=== PATIENT | female | born 1945 | race Caucasian/White ===

== ENCOUNTER → 2016-10-19 15:54 | Outpatient (CLI) | payer MEDICARE, BC ==
[~2016-10-19 15:54] MED LIST: ALBUTEROL2.5 MG/3 M UPD; ASPIRIN81 MG PO; COREG12.5 MG PO; KLOR-CON M2020 MEQ PO; LASIX40 MG PO; OMNICEF300 MG PO; ROBAXIN500 MG PO; STERAPRED DS 1210 MG PO; SYNTHROID100 MCG PO; VITAMIN D31000 UNIT PO; ZYLOPRIM100 MG PO
[2017-01-01 13:12] VITALS: BMI 37.7
== END | disposition home or self-care (01) ==
LOC: D.US 15:54
DX: I80.02 Phlebitis and thrombophlebitis of superficial vessels of left lower extremity (principal)

== ENCOUNTER → 2016-12-20 18:21 | Outpatient (CLI) | payer MEDICARE, BC ==
[~2016-12-20 18:21] MED LIST changes: -ALBUTEROL2.5 MG/3 M UPD; -ROBAXIN500 MG PO
[2017-01-01 13:12] VITALS: BMI 37.7
== END | disposition home or self-care (01) ==
LOC: D.SLEEP 18:21
DX: G47.33 Obstructive sleep apnea (adult) (pediatric) (principal)

== ENCOUNTER 2016-12-31 12:42 | Inpatient (IN) | payer MEDICARE, BC ==
[~2016-12-31] VITALS: Ht 162.6 cm; Wt 99.8 kg
[2016-12-31 13:33] LABS: BASOPHILS 0.1 % (0.0-2.0); EOSINOPHILS 0.1 % (0-7); HEMATOCRIT 42.4 % (36.0-48.0); HEMOGLOBIN 14.3 g/dL (12-16); IMMATURE GRANULOCYTES 0.4 % (0-5); LYMPHOCYTES 12.1 % (15-50); MCH 29.7 pg (26.0-34.0); MCHC 33.7 g/dL (31.0-37.0); MCV 88.1 fL (80.0-100.0); MEAN PLATELET VOLUME 10.7 fL (7.4-10.4); NEUTROPHILS 83.3 % (40-80); PLATELET COUNT 190 10x3/uL (130-400); RBC 4.81 10x6/uL (4.00-5.40); RDW 14.3 % (11.5-14.5); WBC 9.2 10x3/uL (4.8-10.8)
[2016-12-31 13:38] LABS: APPEARANCE CLEAR (CLEAR); BACTERIA FEW /hpf (NONE SEEN); BILIRUBIN NEGATIVE (NEGATIVE); COLOR YELLOW (YELLOW); EPITHELIAL CELLS 0-5 /hpf (0-5); GLUCOSE NEGATIVE (NEGATIVE); KETONE NEGATIVE (NEGATIVE); LEUKOCYTE ESTERASE TRACE (NEGATIVE); NITRITE NEGATIVE (NEGATIVE); PROTEIN NEGATIVE (NEGATIVE); SPECIFIC GRAVITY 1.015 (1.005-1.020); UROBILINOGEN NORMAL (NORMAL); WHITE CELLS - URINE OCC /hpf (0-5)
[2016-12-31 13:46] LABS: ALBUMIN 3.8 g/dL (3.4-5.0); ANION GAP 16.1 mmol/L (8-16); BILIRUBIN - TOTAL 0.49 mg/dL (0.2-1.3); CALCIUM 8.4 mg/dL (8.5-10.1); CARBON DIOXIDE 24.7 mmol/L (21.0-32.0); CREATININE - SERUM 1.6 mg/dL (0.6-1.3); POTASSIUM - SERUM 3.8 mmol/L (3.5-5.1); PROTEIN - SERUM 7.5 g/dL (6.4-8.2)
[2016-12-31 14:22] LABS: CREATINE KINASE 44 UL (21-215); MAGNESIUM - SERUM 1.6 mg/dL (1.8-2.4)
[2016-12-31 14:23] LABS: TROPONIN-I < 0.017 ng/mL (0.000-0.060)
--- NOTE | 2016-12-31 20:12 | NUR ---
RECIEVED PT TO FLOOR VIA WHEELCHAIR AND HOSPITAL STAFF. PT AMBULATED SELF TO BED. ALERT AND ORIENTED AND ABLE TO VERBALIZE NEEDS. IV IS PATENT AND SALINE LOC AT THIS TIME. PT IS AMBULATORY BUT WAS INSTRUCTED TO CALL FOR ANY ASSISTANCE NEEDED. PT IS ORIENTED TO ROOM AND USE OF CALL LIGHT. NO NEEDS ARE VERBALIZED AT THIS TIME. WILL CONTINUE TO MONITOR. SIDE RAILS ARE UP X 2. BED IS IN LOWEST POSITION. CALL LIGHT IS WITHIN REACH.
--- NOTE | 2016-12-31 21:42 | NUR ---
ADMIT ASSESSMENT COMPLETED. FLUIDS HOOKED UP PER ORDER. PT C/O PAIN 04/26. ADMINISTERED PRESCRIBED PRN MORHINE PER ORDER. DENIES FURTHER NEEDS. WILL MONITOR. SIDE RAILS X 2. BED LOW. CALL LIGHT IN REACH.
[2017-01-01] VITALS: BP 174/78
[2017-01-01 04:00] VITALS: BP 172/80
[2017-01-01 04:04] VITALS: BP 196/97; BMI 37.8
[2017-01-01] MEDS ORDERED: OMNICEF300 MG PO (04:12)
[2017-01-01] MEDS ORDERED: SYNTHROID100 MCG PO (04:12)
[2017-01-01] MEDS ORDERED: LASIX40 MG PO (04:12)
[2017-01-01] MEDS ORDERED: COREG12.5 MG PO ×2 (04:13→07:37)
[2017-01-01] MEDS ORDERED: STERAPRED DS 1210 MG PO (04:13)
[2017-01-01] MEDS ORDERED: VITAMIN D31000 UNIT PO (04:14)
[2017-01-01] MEDS ORDERED: KLOR-CON M2020 MEQ PO (04:14)
[2017-01-01] MEDS ORDERED: ZYLOPRIM100 MG PO (04:14)
[2017-01-01] MEDS ORDERED: ASPIRIN81 MG PO (04:15)
--- NOTE | 2017-01-01 07:00 | NUR ---
REPORT RECIEVED ASSUMED CARE. PATIENT IN BED WITH IV INTACT. NO COMPLAINTS. CALL LIGHT WITHIN REACH.
--- NOTE | 2017-01-01 07:29 | HP ---
PATIENT: ROSETTA SALMERON DAILY MEDICAL RECORD: [id number] ACCOUNT: [id number] LOCATION:D.[id number] : 46 ADMISSION DATE: 12/31/16 HISTORY AND PHYSICAL EXAMINATION HISTORY OF PRESENT ILLNESS: A 71-year-old female, who presents to the Emergency with severe lumbar pain, bilateral lower extremity weakness, radiculopathy, has had prior symptoms. Today, she required full assistance for transfers and to get back to the car. PAST SURGICAL HISTORY: Significant for hysterectomy, cataract surgery, tonsillectomy, knee surgery. SOCIAL HISTORY: Denies any history of tobacco, 12th grade education, . No alcohol. FAMILY HISTORY: Father with arthritis, diabetes. Father and mother both with heart disease. Mother with CHF. MEDICAL HISTORY: Significant for asthma, hypothyroidism, gout. CURRENT MEDICATIONS: Allopurinol 100 mg 2 daily, aspirin 81 mg daily, carvedilol 12.5 mg b.i.d., furosemide 40 mg daily, DuoNeb via nebulizer 3-4 times daily, Klor-Con 20 mEq 1 daily, levothyroxine 100 mcg daily, prednisone taper 10 mg tapered, vitamin B12 supplements and vitamin D3 supplements. REVIEW OF SYSTEMS: CONSTITUTIONAL: No acute change in weight or appetite. HEENT: No cephalgia, visual changes, tinnitus, epistaxis or dysphagia. CARDIOVASCULAR: Denies chest pain or palpitation. PULMONARY: Denies hemoptysis, denies night sweats. Admits wheezing, dyspnea on exertion. GASTROINTESTINAL: Denies hematemesis, hematochezia or melena. GENITOURINARY: Denies dysuria. MUSCULOSKELETAL: Presenting complaint of severe lumbar pain radiation to both lower extremities, bilateral lower extremity weakness. NEUROLOGIC: Very limited mobility requires assist. PHYSICAL EXAMINATION: VITAL SIGNS: Temperature 99.1, blood pressure is 151/73, heart rate 77, respirations 20, O2 sats 96%. HEENT: Head is normocephalic, atraumatic. Eyes: Pupils are equally round and reactive to light and accommodation. Extraocular muscles intact. Conjunctiva was not injected. Ears: Canals patent, TMs are intact. Nose: Nares patent without drainage. Throat: No erythema, no exudates. NECK: Supple. No lymphadenopathy. No JVD. HEART: Regular rate and rhythm. No S3, S4, no rub. LUNGS: Scattered rhonchi, bilaterally expiratory wheeze. ABDOMEN: Soft, nontender. Bowel sounds in all 4 quadrants. EXTREMITIES: Present times 4, no edema. Lumbar midpoint tenderness L5-S1. Straight leg positive, radiculopathy pain in both legs. DTRs hyporeflexic both right slightly greater than the left. DIAGNOSTIC DATA: Echo done at the end of October of this year showed normal ejection fraction at 55%, no significant abnormalities. CPAP titration study, HISTORY AND PHYSICAL [id number] JARONROSETTA DAILY moderate obstructive sleep apnea with mild sleep related hypoxemia, CPAP range of 5-8 cm water pressure, results from ER pending. The patient is waiting for a bed, nothing is loaded into the computer. ASSESSMENT AND PLAN: 1. Lumbar pain with bilateral lower extremity weakness, radiculopathy. MRI of the lumbar spine is pending. Consult neurosurgery. 2. Asthmatic/chronic obstructive pulmonary disease symptoms. Continue DuoNeb. Consult Dr. Holguin, discussed case with Dr. Holguin, pain control, supportive care. 3. Hypertension. Restart medications. TRANSINT:[id number] Voice Confirmation ID: [id number] DOCUMENT ID: [id number] MARI LOWERY DO at 0729 CC: [id number] DICTATION DATE: 12/31/161900 TECHNOLOGY COACH: 12/31/162040 ADM IN [place] [id number] [place] [id number]
--- NOTE | 2017-01-01 08:00 | NUR ---
ASSESSMENT COMPLETE, VS STABLE. NO COMPLAINTS AT THIS TIME. IV INTACT. CALL LIGHT WITHIN REACH.
[2017-01-01 08:26] VITALS: BP 187/84
[2017-01-01 11:39] VITALS: BP 173/88
--- NOTE | 2017-01-01 11:56 | NUR ---
Patient Name: ROSETTA SALMERON Admission Status: ER Accout number: [id number] Admission Date: 12-31-2016 : 1945 Admission Diagnosis: Attending: [facility] Current LOS: 1 Anticipated DC Date: 01-04-2017 Planned Disposition: Home or Self Care Primary Insurance: MEDICARE A & B Discharge Planning Comments: CM MET WITH PATIENT REGARDING D/C NEEDS AND PLANS. PATIENT STATED SHE LIVES WITH HER SPOUSE (BETTY) AND HE WILL DRIVE HER HOME AT DISCHARGE. PATIENT STATES THERE ARE 3 STAIRS INSIDE HOME W/O RAIL TO GET TO HER DEN. PATIENT STATED SHE IS INDEPENDENT AND HAS NO DME AT HOME. PATIENTS PCP IS DR. LOWERY AND PHARMACY IS [facility] [address]. PATIENT HAS NEVER HAD HOME HEALTH AND DOES NOT WANT IT AT DISCHARGE. CM WILL CONTINUE TO FOLLOW PATIENT WITH D/C NEEDS AND PLANS. PCP DR. [facility]EVER[facility] [address] (PHARMACY) [phone] BETTY (SPOUSE) [phone] Senior [employer] Software Engineer: Lynne Amin Is the patient Alert and Oriented? Yes 0 * How many steps to enter\exit or inside your home? 3 0 * PCP DR. LOWERY 0 * Pharmacy [facility] [address] 0 * Preadmission Environment Home with Family 0 * ADLs Independent 0 * Equipment None 0 * List name and contact numbers for known caregivers / representatives who currently or will assist patient after discharge: BETTY (SPOUSE) [phone] 0 * Community resources currently utilized None 0 * Additional services required to return to the preadmission environment? Yes 0 * Can the patient safely return to the preadmission environment? Yes 0 * Has this patient been hospitalized within the prior 30 days at any hospital? No 0 Grand Total: 0
--- NOTE | 2017-01-01 13:00 | NUR ---
PATIENT SITTING UP IN BED EATING. NO COMPLAINTS. IV INTACT. CALL LIGHT WITHIN REACH.
[2017-01-01 13:12] VITALS: Ht 162.6 cm; Wt 99.8 kg
--- NOTE | 2017-01-01 14:06 | NUR ---
PATIENT UP AMBULATING WITH PT.
--- NOTE | 2017-01-01 15:17 | NUR ---
PATIENT TO GET MRI DONE
--- NOTE | 2017-01-01 16:00 | NUR ---
PATIENT BACK TO ROOM WITH NO COMPLAINTS. IV INTACT. CALL LIGHT WITHIN REACH.
--- NOTE | 2017-01-01 18:50 | NUR ---
PATIENT IN BED WITH IV INTACT. NO COMPLAINTS AT THIS TIME. CALL LIGHT WITHIN REACH.
--- NOTE | 2017-01-01 19:20 | NUR ---
RECIEVED SHIFT REPORT. PT IS LYING IN BED. ALERT AND ORIENTED AND ABLE TO VERBALIZE NEEDS. IV IS PATENT AND FLUIDS ARE RUNNING PER ORDER. PT IS AMBULATORY BUT WAS INSTRUCTED TO CALL FOR ANY ASSISTANCE NEEDED. PT STATES PAIN IS 5/10. NO NEEDS ARE VERBALIZED AT THIS TIME. WILL CONTINUE TO MONITOR. SIDE RAILS ARE UP X 2. BED IS IN LOWEST POSITION. CALL LIGHT IS WITHIN REACH.
--- NOTE | 2017-01-01 19:20 | NUR ---
RECIEVED SHIFT REPORT. PT IS LYING IN BED. ALERT AND ORIENTED AND ABLE TO VERBALIZE NEEDS. IV IS PATENT AND FLUIDS ARE RUNNING PER ORDER. PT IS AMBULATORY BUT WAS INSTRUCTED TO CALL FOR ANY ASSISTANCE NEEDED. PT STATES PAIN IS 4/10. O2 @ 2 PER NASAL CANNULA. NO NEEDS ARE VERBALIZED AT THIS TIME. WILL CONTINUE TO MONITOR. SIDE RAILS ARE UP X 2. BED IS IN LOWEST POSITION. CALL LIGHT IS WITHIN REACH.
[2017-01-01 20:00] VITALS: BP 123/58
--- NOTE | 2017-01-01 20:05 | NUR ---
SHIFT ASSESSMENT COMPLETED. PT STATUS REMAINS UNCHANGED FROM PREVIOUS. NO NEEDS ARE VOICED. WILL MONITOR. SIDE RAILS X 2. BED LOW. CALL LIGHT IN REACH.
[2017-01-02 04:31] LABS: BASOPHILS 0.2 % (0.0-2.0); EOSINOPHILS 2.4 % (0-7); HEMATOCRIT 39.5 % (36.0-48.0); HEMOGLOBIN 13.2 g/dL (12-16); IMMATURE GRANULOCYTES 0.3 % (0-5); LYMPHOCYTES 24.2 % (15-50); MCH 29.9 pg (26.0-34.0); MCHC 33.4 g/dL (31.0-37.0); MCV 89.6 fL (80.0-100.0); MEAN PLATELET VOLUME 10.7 fL (7.4-10.4); MONOCYTES 6.9 % (2-11); PLATELET COUNT 156 10x3/uL (130-400); RBC 4.41 10x6/uL (4.00-5.40); RDW 14.2 % (11.5-14.5); WBC 9.3 10x3/uL (4.8-10.8)
[2017-01-02 04:47] LABS: ANION GAP 11.6 mmol/L (8-16); CALCIUM 8.3 mg/dL (8.5-10.1); CREATININE - SERUM 1.3 mg/dL (0.6-1.3); HEMOGLOBIN A1C 6.2 % (4.8-6.0); MAGNESIUM - SERUM 1.6 mg/dL (1.8-2.4); POTASSIUM - SERUM 3.6 mmol/L (3.5-5.1)
--- NOTE | 2017-01-02 07:00 | NUR ---
REPORT RECIEVED ASSUMED CARE. PATIENT IN BED WITH IV INTACT. NO COMPLAINTS AT THIS TIME. CPM ON AND WORKING. CALL LIGHT WITHIN REACH.
[2017-01-02 08:19] VITALS: BP 168/80
--- NOTE | 2017-01-02 08:40 | NUR ---
PATIENT IV HURTING AND RED. REMOVED WITH CATH TIP INTACT. EXPLAINED TO PATIENT THAT IF NEED ANOTHER IV WE WOULD START ONE AT THAT TIME. VERBALIZED UNDERSTANDING. CALL LIGHT WITHIN REACH. CPM ON AND WORKING.
[2017-01-02 12:16] VITALS: BP 148/100
[2017-01-02 16:44] VITALS: BP 150/73
--- NOTE | 2017-01-02 18:00 | NUR ---
SPOKE WITH HORACE ABOUT PATIENTS PAIN AT THIS TIME. STATED SHE WOULD SPEAK WITH PATIENT. NOTIFIED PATIENT. [facility].
--- NOTE | 2017-01-02 18:45 | NUR ---
PATIENT SITTING UP IN BED WITH NO COMPLAINTS AT THIS TIME. IV INTACT. CALL LIGHT WITHIN REACH.
[2017-01-02 20:00] VITALS: BP 163/80
--- NOTE | 2017-01-02 22:25 | NUR ---
SHIFT ASSESSMENT COMPLETED. PT IV TO RIGHT HAND INFILTRATED. D/C'D WITH CATHETER TIP INTACT. NEW IV RESITED TO RIGHT AC X 3 ATTEMPTS. GOOD BLOOD RETURN. FLUSHES W/O DIFFICULTY. FLUIDS RECONNECTED PER ORDER. NIGHT MEDS GIVEN WITH NO PROBLEMS. PT REQUESTING PRN ROBAXIN FOR MUSCLE SPASM. ADMINISTERED PER ORDER. DENIES FURTHER NEEDS. WILL MONITOR. SIDE RAILS X 2. BED LOW. CALL LIGHT IN REACH.
[2017-01-03] VITALS: BP 155/74
[2017-01-03 04:00] VITALS: BP 159/71
--- NOTE | 2017-01-03 07:00 | NUR ---
REPORT RECIEVED ASSUMED CARE. PATIENT IN BED WITH NO COMPLAINTS AT THIS TIME. CALL LIGHT WITHIN REACH.
[2017-01-03 08:15] VITALS: BP 199/104
--- NOTE | 2017-01-03 08:50 | NUR ---
DR. MARIO TO PATIENT. PATIENT HAS NO COMPLAINTS. IV INTACT. CALL LIGHT WITHIN REACH.
[2017-01-03 09:18] LABS: IMMUNOGLOBULIN E 71 IU/mL (0-100)
[2017-01-03 10:20] LABS: IMMUNOGLOBULIN A 166 mg/dL (87-352); IMMUNOGLOBULIN G 751 mg/dL (700-1600)
[2017-01-03 12:11] VITALS: BP 155/89
--- NOTE | 2017-01-03 13:13 | NUR ---
NUTRITION MONITORING & EVAL CHART REVIEWED, PT VISIT. REG DIET WITH 100% INTAKE RECENT MEALS. RD FOLLOWING
--- NOTE | 2017-01-03 13:45 | NUR ---
NEW IV STARTED ON PATIENT BY LULÚ STOVER IN LEFT HAND. IV IN RIGHT AC REMOVED WITH CATH TIP INTACT. NO COMPLAINTS. CALL LIGHT WITHIN REACH.
--- NOTE | 2017-01-03 15:00 | NUR ---
PATIENT UP AMBULATING IN [place] WITH NO PROBLEMS AT THIS TIME. BACK BRACE ON.
[2017-01-03 15:23] VITALS: BP 155/82
--- NOTE | 2017-01-03 17:24 | NUR ---
REPORT RECIEVED ASSUMED CARE. PATIENT IN BED WITH IV INTACT. NO COMPLAINTS AT THIS TIME. CALL LIGHT WITHIN REACH.
--- NOTE | 2017-01-03 18:50 | NUR ---
PATIENT SITTING UP IN BED WITH NO COMPLAINTS. IV INTACT. FAMILY AT BEDSIDE. CALL LIGHT WITHIN REACH.
[2017-01-03 20:00] VITALS: BP 143/56
--- NOTE | 2017-01-03 22:46 | NUR ---
PATIENT RESTING IN BED AND DENIES NEEDS AT THIS TIME. ADMINISTERED MEDS PER ORDERS. BED IN LOWEST POSITION AND CALL LIGHT WITHIN REACH. ENCOURAGED PATIENT TO CALL IF SHE HAS FURTHER NEEDS.
[2017-01-04] VITALS: BP 142/72
[2017-01-04 03:00] VITALS: BP 141/66
[2017-01-04 04:41] LABS: APTT 26.8 SECONDS (22.8-39.4); INR 0.94 (0.85-1.17); PROTIME 12.5 SECONDS (11.6-15.0)
[2017-01-04 04:52] LABS: CALCIUM 8.8 mg/dL (8.5-10.1); CARBON DIOXIDE 30.3 mmol/L (21.0-32.0); CREATININE - SERUM 1.3 mg/dL (0.6-1.3)
[2017-01-04 04:53] LABS: POTASSIUM - SERUM 4.3 mmol/L (3.5-5.1)
--- NOTE | 2017-01-04 07:30 | NUR ---
PT BEING TAKE TO IR FOR INJECTION AT THIS TIME. WILL MONITOR PT WHEN SHE RETURNS TO ROOM 2207.
[2017-01-04 07:46] VITALS: BP 194/92
--- NOTE | 2017-01-04 08:35 | NUR ---
PT BACK TO ROOM 2207 AWAKE AND ALERT. DENIES NEEDS AT THIS TIME. CALL LIGHT IN REACH, WILL CONTINUE WITH PLAN OF CARE.
--- NOTE | 2017-01-04 09:09 | NUR ---
SCHEDULED MEDICATIONS ADMINISTERED AT THIS TIME. TAKEN WITHOUT DIFFICULTY. TOLERATING DIET WITHOUT ISSUE. SELF POSITIONS AND AMBULATES FOR COMFORT. CALL LIGHT IN REACH, WILL CONTINUE WITH PLAN OF CARE.
[2017-01-04 12:12] VITALS: BP 148/67
--- NOTE | 2017-01-04 13:15 | NUR ---
AMBULATING IN HALLWAY INDEPENDENTLY AT THIS TIME. DENIES NEEDS. WILL CONTINUE WITH PLAN OF CARE.
--- NOTE | 2017-01-04 14:40 | NUR ---
AMBULATING IN HALLWAY AT THIS TIME. DENIES NEEDS. WILL CONTINUE WITH PLAN OF CARE.
[2017-01-04 16:29] VITALS: BP 172/80
--- NOTE | 2017-01-04 19:35 | NUR ---
IV NOTED LEAKING AT SITE. IV DCD WITH CATH TIP INTACT. NEW 22G IV PLACED X2 ATTEMPTS. PATIENT TOLERATED WITHOUT COMPLAINTS. NO OTHER NEEDS VOICED AT THIS TIME. SHIFT ASSESSMENT COMPLETED. BED LOW. CALL LIGHT IN REACH
[2017-01-04 20:00] VITALS: BP 165/72
--- NOTE | 2017-01-04 22:27 | NUR ---
RESTING WITH EYES CLOSED, NO DISTRESS NOTED, FALL PRECAUTIONS IN PLACE, CL IN REACH
[2017-01-05] VITALS: BP 114/55
[2017-01-05 04:00] VITALS: BP 144/70
--- NOTE | 2017-01-05 07:10 | NUR ---
PATIENT RECEIVED IN RIGHT LATERAL POSITION ALERT AND RESTING QUIETLY. RESPIRATIONS EVEN AND UNLABORED. SIDE RAILS UP X2. BED IN LOW POSITION. DENIES NEEDS.
[2017-01-05] MEDS ORDERED: ROBAXIN500 MG PO (07:48)
[2017-01-05] MEDS ORDERED: ALBUTEROL2.5 MG/3 M UPD (07:48)
[2017-01-05] MEDS ORDERED: COREG12.5 MG PO (07:51)
[2017-01-05 07:52] VITALS: BP 153/65
--- NOTE | 2017-01-05 08:32 | NUR ---
CM REASSESSMENT NOTE: PATIENT IS DISCHARGING HOME TODAY-SPOUSE WILL DRIVE HER HOME. PATIENT DENIED HOME HEALTH OR ANY OTHER NEEDS.
--- NOTE | 2017-01-05 08:45 | NUR ---
PATIENT SITTING UP ON SIDE OF BED ALERT. NO SIGNS OF DISTRESS NOTED. SCHEDULED MEDICATION ADMINISTERED. DENIES NEEDS. SIDE RAILS UP X2. BED IN LOW POSITION. CALL LIGHT IN REACH.
--- NOTE | 2017-01-05 10:00 | NUR ---
PATIENT UP AMBULATING IN HALLWAY WITHOUT ASSIST. NO SIGNS OF DISTRESS NOTED.
--- NOTE | 2017-01-05 12:40 | NUR ---
SITTING UP ON SIDE OF BED ALERT EATING LUNCH. TOLERATING WELL. BED IN LOW POSITION. SIDE RAILS UP X2
--- NOTE | 2017-01-05 14:41 | NUR ---
PATIENT SITTING UP IN CHAIR RESTING WITH EYES CLOSED. RESPIRATIONS EVEN AND UNLABORED. CALL LIGHT IN REACH.
--- NOTE | 2017-01-05 15:20 | NUR ---
IV TO RIGHT HAND D/C BY MANUEL STUDENT AND INSTRUCTOR
--- NOTE | 2017-01-05 17:15 | NUR ---
D/C TEACHING PROVIDED. PATIENT STATES UNDERSTANDING.
--- NOTE | 2017-01-05 18:18 | NUR ---
PATIENT D/C HOME. TRANSFERRED DOWNSTAIRS WITH STAFF VIA WHEELCHAIR
--- NOTE | 2017-01-09 08:07 | DS ---
PATIENT:ROSETTA SALMERON DAILY :47 MEDICAL RECORD: [id number] DISCHARGE SUMMARY ADMISSION DATE: 12/31/16 DISCHARGE DATE: 01/05/17 DATE OF ADMISSION: 12/31/2016 DATE OF DISCHARGE: 01/05/2017 ADMISSION DIAGNOSES: Intractable lumbar pain, nonambulatory, obstructive sleep apnea, hypertension, asthma. DISCHARGE DIAGNOSES: Intractable lumbar pain with bilateral lower extremity weakness, radiculopathy, hypertension, obstructive sleep apnea, asthma. CONSULTS: Dr. Macdonald, neurosurgery; interventional radiology; Dr. Ramsey, pulmonology. HOSPITAL COURSE: The patient was admitted to the ER, unable to walk without full assistance. CT was obtained showing findings of lumbar disc disease. Recommendation for MRI, neurosurgery consulted. MRI findings showed some nerve impingement. Recommendations for interventional radiology, aspirin was held. interventional radiology awaited for aspirin, to clear and performed epidural injection, the patient now ambulatory with minimal discomfort. With her asthmatic symptoms and obstructive sleep apnea, pulmonology consulted, suggested medications. We will follow up as an outpatient. The patient is feeling significantly better. Pain significantly relieved. Discharged home in improved condition. VITAL SIGNS ON DISCHARGE: Temperature 98.1, blood pressure 153/65, heart rate 53, respirations 16, and O2 sat 97% on room air. GENERAL: Alert, oriented, no acute distress. HEART: Regular rate and rhythm. LUNGS: Clear. ABDOMEN: Soft. EXTREMITIES: Present times 4. DISCHARGE MEDICATIONS: Per med rec. DISCHARGE INSTRUCTIONS: The patient will follow up in the clinic in 10 days. TRANSINT:[id number] Voice Confirmation ID: [id number] DOCUMENT ID: [id number] MARI LOWERY DO at 0807 CC: [id number] DICTATION DATE: 01/05/17 0757 SUPERVISOR GATE SERVICES: 01/06/17 0057 DIS IN 01/05/17 [place] [id number] [place] [address]
== END 2017-01-05 18:19 | disposition home or self-care (01) | DRG 552 ==
LOC: D.ER 12:42 → D.MS 18:00
PROVIDERS: Emergency Medicine; Internal Medicine Pulmonary Disease; Specialist; ADMIT Family Medicine
PROC: 3E0R3BZ Introduction of Anesthetic Agent into Spinal Canal, Percutaneous Approach (ICD-10-PCS; 2017-01-04)
PROC: 3E0R33Z Introduction of Anti-inflammatory into Spinal Canal, Percutaneous Approach (ICD-10-PCS; principal; 2017-01-04 07:50)
DX: M48.06 Spinal stenosis, lumbar region (principal); M51.16 Intervertebral disc disorders with radiculopathy, lumbar region; J45.909 Unspecified asthma, uncomplicated; J44.9 Chronic obstructive pulmonary disease, unspecified; E03.9 Hypothyroidism, unspecified; G47.34 Idiopathic sleep related nonobstructive alveolar hypoventilation; G47.33 Obstructive sleep apnea (adult) (pediatric); I10 Essential (primary) hypertension; E83.42 Hypomagnesemia; E83.51 Hypocalcemia; M10.9 Gout, unspecified; M25.78 Osteophyte, vertebrae

== ENCOUNTER → 2017-01-18 16:39 | Outpatient (CLI) | payer MEDICARE, BC ==
[2017-01-01 13:12] VITALS: BMI 37.7
[~2017-01-18 16:39] MED LIST changes: +ALBUTEROL2.5 MG/3 M UPD; +ROBAXIN500 MG PO
== END | disposition home or self-care (01) ==
LOC: D.MAMMO 12-27 11:15
DX: Z12.31 Encounter for screening mammogram for malignant neoplasm of breast (principal)

== ENCOUNTER → 2017-05-15 08:34 | Outpatient (CLI) | payer MEDICARE, BC ==
[2017-01-01 13:12] VITALS: BMI 37.7
== END | disposition home or self-care (01) ==
LOC: D.RT 08:34
DX: J44.9 Chronic obstructive pulmonary disease, unspecified (principal)

== ENCOUNTER 2017-08-09 21:01 | Emergency (ER) | payer MEDICARE, BC ==
[2017-01-01 13:12] VITALS: BMI 37.7
[2017-08-09 21:51] LABS: BASOPHILS 0.1 % (0-2); EOSINOPHILS 0.2 % (0-7); HEMATOCRIT 42.2 % (36.0-48.0); HEMOGLOBIN 14.1 g/dL (12-16); IMMATURE GRANULOCYTES 1.5 % (0-5); LYMPHOCYTES 14.1 % (15-50); MCH 30.3 pg (26.0-34.0); MCHC 33.4 g/dL (31.0-37.0); MCV 90.6 fL (80.0-100.0); MEAN PLATELET VOLUME 10.5 fL (7.4-10.4); MONOCYTES 7.3 % (2-11); NEUTROPHILS 76.8 % (40-80); PLATELET COUNT 176 10x3/uL (130-400); RBC 4.66 10x6/uL (4.00-5.40); RDW 14.2 % (11.5-14.5); WBC 15.6 10x3/uL (4.8-10.8)
[2017-08-09 22:05] LABS: ALBUMIN 3.1 g/dL (3.4-5.0); ANION GAP 14.1 mmol/L (8-16); BILIRUBIN - TOTAL 0.2 mg/dL (0.2-1.3); CARBON DIOXIDE 26.8 mmol/L (21.0-32.0); CREATININE - SERUM 1.9 mg/dL (0.6-1.3); POTASSIUM - SERUM 3.9 mmol/L (3.5-5.1); PROTEIN - SERUM 6.7 g/dL (6.4-8.2)
[2017-08-09 22:13] LABS: MAGNESIUM - SERUM 1.8 mg/dL (1.8-2.4)
== END 2017-08-10 00:56 | disposition home or self-care (01) ==
LOC: D.ER 21:01
PROVIDERS: Emergency Medicine
DX: J20.9 Acute bronchitis, unspecified (principal); I10 Essential (primary) hypertension

== ENCOUNTER 2017-12-18 19:49 | Emergency (ER) | payer MEDICARE, BC ==
[2017-01-01 13:12] VITALS: BMI 37.7
[2017-12-18 20:26] LABS: APPEARANCE CLEAR (CLEAR); BACTERIA FEW /hpf (NONE SEEN); BILIRUBIN NEGATIVE (NEGATIVE); COLOR YELLOW (YELLOW); GLUCOSE NEGATIVE (NEGATIVE); KETONE NEGATIVE (NEGATIVE); NITRITE NEGATIVE (NEGATIVE); PROTEIN NEGATIVE (NEGATIVE); RED CELLS - URINE OCC /hpf (0-5); UROBILINOGEN NORMAL (NORMAL); WHITE CELLS - URINE 0-5 /hpf (0-5)
[2017-12-18 21:02] LABS: BASOPHILS 0.3 % (0-2); EOSINOPHILS 2.3 % (0-7); HEMOGLOBIN 14.8 g/dL (12-16); IMMATURE GRANULOCYTES 0.1 % (0-5); LYMPHOCYTES 25.6 % (15-50); MCH 29.8 pg (26.0-34.0); MCHC 34.4 g/dL (31.0-37.0); MCV 86.7 fL (80.0-100.0); MEAN PLATELET VOLUME 11.5 fL (7.4-10.4); MONOCYTES 8.9 % (2-11); NEUTROPHILS 62.8 % (40-80); PLATELET COUNT 166 10x3/uL (130-400); RBC 4.96 10x6/uL (4.00-5.40); RDW 13.5 % (11.5-14.5); WBC 7.7 10x3/uL (4.8-10.8)
[2017-12-18 21:16] LABS: ALBUMIN 3.7 g/dL (3.4-5.0); ANION GAP 12.7 mmol/L (8-16); BILIRUBIN - TOTAL 0.29 mg/dL (0.2-1.3); CALCIUM 9.5 mg/dL (8.5-10.1); CREATININE - SERUM 1.4 mg/dL (0.6-1.3); POTASSIUM - SERUM 3.7 mmol/L (3.5-5.1); PROTEIN - SERUM 7.6 g/dL (6.4-8.2)
== END 2017-12-18 22:45 | disposition home or self-care (01) ==
LOC: D.ER 19:49
PROVIDERS: Family Medicine; Nurse Practitioner Family
DX: R10.9 Unspecified abdominal pain (principal); N39.0 Urinary tract infection, site not specified; S39.012A Strain of muscle, fascia and tendon of lower back, initial encounter; X58.XXXA Exposure to other specified factors, initial encounter; Y93.89 Activity, other specified; Y92.89 Other specified places as the place of occurrence of the external cause; M06.9 Rheumatoid arthritis, unspecified

== ENCOUNTER 2018-01-04 17:34 | Emergency (ER) | payer MEDICARE, BC ==
[2017-01-01 13:12] VITALS: BMI 37.7
== END 2018-01-04 21:26 | disposition home or self-care (01) ==
LOC: D.ER 17:34
DX: S00.83XA Contusion of other part of head, initial encounter (principal); W01.0XXA Fall on same level from slipping, tripping and stumbling without subsequent striking against object, initial encounter; Y93.89 Activity, other specified; Y92.019 Unspecified place in single-family (private) house as the place of occurrence of the external cause; S01.81XA Laceration without foreign body of other part of head, initial encounter; S16.1XXA Strain of muscle, fascia and tendon at neck level, initial encounter; I10 Essential (primary) hypertension

== ENCOUNTER → 2018-02-15 14:00 | Outpatient (CLI) | payer MEDICARE, BC ==
[2017-01-01 13:12] VITALS: BMI 37.7
== END | disposition home or self-care (01) ==
LOC: D.CT 14:00
DX: R10.9 Unspecified abdominal pain (principal)

== ENCOUNTER → 2018-12-12 13:20 | Outpatient (CLI) | payer MEDICARE, BC ==
[2017-01-01 13:12] VITALS: BMI 37.7
== END | disposition home or self-care (01) ==
LOC: D.RT 13:20
PROVIDERS: ATTEND Internal Medicine Pulmonary Disease
DX: J45.991 Cough variant asthma (principal)